=== PATIENT | male | born 1990 | race Caucasian/White ===

== ENCOUNTER 2017-05-11 23:05 | Emergency (ER) | payer OTHER ==
--- NOTE | 2017-05-11 23:26 | CPEKG ---
Heart Rate: 77 RR Interval: 779 P-R Interval: 160 QRSD Interval: 98 QT Interval: 360 QTC Interval: 408 P Valera: 38 QRS Valera: 39 T Wave Valera: 36 EKG Severity - NORMAL ECG - EKG Impression: SINUS RHYTHM EKG Impression: ST ELEV, PROBABLE NORMAL EARLY REPOL PATTERN Electronically Signed By: Romero Smyth 12-May-2017 01:47:36
--- NOTE | 2017-05-11 23:34 | EDPHY ---
H & P Stated Complaint: c/o lightheadedness/tingling in LUE-LLE x 1 week Time Seen by Provider: 05/11/17 23:16 HPI/ROS: Chief Complaint: Chest pain, arm tingling HPI: A 26-year-old male with no significant medical history presenting with intermittent episodes of chest tightness, tingling in his left arm, tingling his left leg and occasional shortness of breath. He has had similar episodes in the past and was told it was altitude sickness. Patient moved here beginning of March. The symptoms been going on for the last 2 weeks. Pain in his chest at worst is 1/10. It lasts a few seconds. He did get some shortness of breath 2 weeks ago when hiking [place] [employer] [place] not had any recently. Occasionally gets some intermittent tingling in his left arm or his left leg. That lasts up to several minutes. There are no aggravating or alleviating factors. No fevers or chills. No cough. No nausea or vomiting. Father from complications of dilated cardiomyopathy in his 40s. His father was also on a lung transplant list. Unknown if the out history of coronary artery disease. 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 He is concerned that this might represent coronary artery disease. ROS: 10 point Review of Systems is negative except as noted in the HPI. PMH: Denies Social History: No smoking, occasional alcohol, no recreational drug use Family History: non-contributory Physical Exam: Gen: Awake, Alert, No Distress HEENT: Nose: no rhinorrhea Eyes: PERRLA, EOMI Mouth: Moist mucosa Neck: Supple, no JVD Chest: nontender, lungs clear to auscultation Heart: S1, S2 normal, no murmur Abd: Soft, non-tender, no guarding Back: no CVA tenderness, no midline tenderness Ext: no edema, non-tender Skin: no rash Neuro: CN II-XII intact, Sensation grossly intact, Strength 5/5 in bilateral upper and lower extremities - Medical/Surgical History Hx Asthma: No Hx Chronic Respiratory Disease: No Hx Diabetes: No Hx Cardiac Disease: No Hx Renal Disease: No Hx Cirrhosis: No Hx Alcoholism: No Hx HIV/AIDS: No Hx Splenectomy or Spleen Trauma: No Other PMH: lasik surg bilat eyes - Social History Smoking Status: Never smoked Constitutional: Initial Vital Signs Temperature (C) 36.9 C 05/11/17 23:10 Heart Rate 85 05/11/17 23:10 Respiratory Rate 16 05/11/17 23:10 Blood Pressure 161/105 H 05/11/17 23:10 O2 Sat (%) 97 05/11/17 23:10 O2 Delivery Mode Room Air Allergies/Adverse Reactions: shellfish derived Allergy (Verified 05/11/17 23:14) champagne Allergy (Uncoded 05/11/17 23:14) Home Medications: Medication Instructions Recorded Aspirin 81mg (*) 05/11/17 Fish Oil Concentrate Softgel 05/11/17 Multivitamin (*) 05/11/17 Medical Decision Making - Diagnostics EKG Interpretation: ECG time 11:23 p.m.. Sinus rhythm with a rate of 77, normal axis, normal intervals, he has J-point elevation in V2 through V5 with mild elevation in 2 and AVF consistent with early repolarization. No acute ischemic changes. ED Course/Re-evaluation: Laboratory evaluations are unremarkable including a normal troponin. No acute changes on his ECG. No evidence of acute cardiac or pulmonary process at this time. He is symptom free. Will discharge with follow-up as an outpatient, return for any concerns. - Data Points Laboratory Results: Laboratory Results 05/11/17 23:40 05/11/17 23:40 05/11/17 05/11/17 23:40 23:40 WBC 8.15 10^3/uL 10^3/uL (3.80-9.50) RBC 5.12 10^6/uL 10^6/uL (4.40-6.38) Hgb 16.3 g/dL g/dL (13.7-17.5) Hct 47.0 % % (40.0-51.0) MCV 91.8 fL fL (81.5-99.8) MCH 31.8 pg pg (27.9-34.1) MCHC 34.7 g/dL g/dL (32.4-36.7) RDW 12.0 % % (11.5-15.2) Plt Count 278 10^3/uL 10^3/uL (150-400) MPV 10.6 fL fL (8.7-11.7) Neut % (Auto) 59.5 % % (39.3-74.2) Lymph % (Auto) 29.1 % % (15.0-45.0) [place] % (Auto) 7.0 % % (4.5-13.0) Eos % (Auto) 2.8 % % (0.6-7.6) Baso % (Auto) 1.2 % % (0.3-1.7) Nucleat RBC Rel Count 0.0 % % (0.0-0.2) Absolute Neuts (auto) 4.85 10^3/uL 10^3/uL (1.70-6.50) Absolute Lymphs (auto) 2.37 10^3/uL 10^3/uL (1.00-3.00) Absolute Monos (auto) 0.57 10^3/uL 10^3/uL (0.30-0.80) Absolute Eos (auto) 0.23 10^3/uL 10^3/uL (0.03-0.40) Absolute Basos (auto) 0.10 10^3/uL 10^3/uL (0.02-0.10) Absolute Nucleated RBC 0.00 10^3/uL 10^3/uL (0-0.01) Immature Gran % 0.4 % % (0.0-1.1) Immature Gran # 0.03 10^3/uL 10^3/uL (0.00-0.10) Sodium 140 mEq/L mEq/L (135-145) Potassium 3.9 mEq/L mEq/L (3.5-5.2) Chloride 101 mEq/L mEq/L (97-110) Carbon Dioxide 26 mEq/l mEq/l (22-31) Anion Gap 13 mEq/L mEq/L (8-16) BUN 10 mg/dL mg/dL (7-23) Creatinine 0.6 mg/dL L mg/dL (0.7-1.3) Estimated GFR > 60 Glucose 94 mg/dL mg/dL (70-100) Calcium 9.5 mg/dL mg/dL (8.5-10.4) Troponin I < 0.012 ng/mL ng/mL (0.000-0.034) Departure - Departure Disposition: Home, Routine, Self-Care Clinical Impression: Chest pain Condition: Good Instructions: Chest Pain (ED) Additional Instructions: Follow up with primary care in 3-4 days for further evaluation and possible outpatient stress test. Return to the emergency department for worsening chest pain, shortness of breath , lightheadedness, fainting, or any other concerns. Referrals: Noelle Morton MD [Medical Doctor] - As per Instructions
[2017-05-11 23:48] LABS: PLATELET COUNT 278 10^3/uL (150-400)
[2017-05-12 00:57] VITALS: BP 166/87; PULSE 79; RESP 18; TEMP 98.2; O2SAT 96
== END 2017-05-12 00:57 | disposition home or self-care (01) ==
DX: R07.9 Chest pain, unspecified (principal); Z79.82 Long term (current) use of aspirin